=== PATIENT | female | born 1955 | race Caucasian/White ===

== ENCOUNTER 2017-04-18 18:24 | Emergency (ER) | payer MEDICARE ==
[~2017-04-18 18:24] MED LIST: NAPR250T6 PO
== END 2017-04-18 20:53 | disposition left against medical advice (07) ==
LOC: ED 20:47
DX: Z53.21 Procedure and treatment not carried out due to patient leaving prior to being seen by health care provider (principal)

== ENCOUNTER 2018-03-12 11:40 | Emergency (ER) | payer MEDICARE ==
[~2018-03-12] VITALS: Ht 170.2 cm; Wt 65.0 kg
--- NOTE | 2018-03-12 12:19 | NUR ---
[place] with 1cm laceration ( bleeding was stopped ) drink vodka ( in am ) alcohol intoxication
--- NOTE | 2018-03-12 14:24 | NUR ---
PT IS RESTING MTF NEEDED
--- NOTE | 2018-03-12 14:52 | NUR ---
Bedside SBAR report received from RN, Daniela. Pt sleeping on [facility], on right side. VSS.
[2018-03-12 14:53] VITALS: BP 117/65
--- NOTE | 2018-03-12 15:30 | NUR ---
Pt woken up and encouraged to ambulate to bathroom and asked if she is feeling ok to discharge. Pt states, "I'm not drunk, I don't drink." Pt ambulated to bathroom with shuffled gait, no assistance required.
--- NOTE | 2018-03-12 15:40 | NUR ---
Pt ambulating in hallway, asked to wait in her room for discharge paperwork, and MD notified that pt is ambulatory and ready to d/c.
--- NOTE | 2018-03-12 16:00 | NUR ---
RN to bedside to advise pt that paperwork is almost ready, pt has left prior to receiving d/c paperwork.
== END 2018-03-12 16:15 | disposition home or self-care (01) ==
LOC: ED 11:41
DX: S01.01XA Laceration without foreign body of scalp, initial encounter (principal); F10.120 Alcohol abuse with intoxication, uncomplicated; W18.30XA Fall on same level, unspecified, initial encounter; Y93.89 Activity, other specified; Y92.410 Unspecified street and highway as the place of occurrence of the external cause; Y99.8 Other external cause status
CPT/HCPCS: 70450; 99284

== ENCOUNTER 2018-10-08 01:54 | Emergency (ER) | payer MEDICARE, MEDICAID ==
[~2018-10-08] VITALS: Ht 167.6 cm; Wt 54.0 kg
[2018-10-08 06:27] VITALS: BP 136/74
== END 2018-10-08 07:14 | disposition home or self-care (01) ==
LOC: ED 07:03
DX: S06.0X9A Concussion with loss of consciousness of unspecified duration, initial encounter (principal); S00.31XA Abrasion of nose, initial encounter; S50.312A Abrasion of left elbow, initial encounter; S80.212A Abrasion, left knee, initial encounter; F10.220 Alcohol dependence with intoxication, uncomplicated; W01.0XXA Fall on same level from slipping, tripping and stumbling without subsequent striking against object, initial encounter
CPT/HCPCS: 70450; 72125; 99284

== ENCOUNTER 2018-10-18 05:24 | Emergency (ER) | payer MEDICARE, MEDICAID ==
[~2018-10-18] VITALS: Ht 167.6 cm; Wt 56.1 kg
[2018-10-18 06:19] VITALS: BP 141/88
== END 2018-10-18 07:24 | disposition home or self-care (01) ==
LOC: ED 06:27
DX: K59.00 Constipation, unspecified (principal); F10.129 Alcohol abuse with intoxication, unspecified; F17.210 Nicotine dependence, cigarettes, uncomplicated
CPT/HCPCS: 36415; 74021; 80053; 81001; 83690; 85025; 87086; 99284